=== PATIENT | female | born 1995 | race Hispanic/Latino ===

== ENCOUNTER 2021-02-22 14:50 | Day surgery (SDC) | payer BC ==
[2021-02-22 16:50] LABS: Hemoglobin 12.6 g/dL (12.0-15.5); Mean Corpuscular HGB CONC 32.5 g/dL (32.0-36.0); Mean Corpuscular Hemoglobin 29.9 pg (27.0-33.0); Mean Corpuscular Volume 92.2 fl (81.6-98.3); Mean Platelet Volume 12.9 fl (7.4-10.4); Platelet Count 159 10x3/uL (150-450); RBC Distribution Width 14.8 % (11.5-14.5); Red Blood Cell (RBC) Count 4.21 10x6/uL (3.90-5.03); White Blood Cell (WBC) Count 9.8 10x3/uL (3.5-10.5)
[2021-02-22 17:27] LABS: HIV (1/2) Antibody/Antigen Non-Reactive (NonReactive); HIV 1/2 INDEX 0.07 S/CO (<1.00); Hep B Surf Ag Non-Reactive S/CO (NonReactive); Syphilis Antibody Nonreactive (Nonreactive); Syphilis Antibody Index 0.06 S/CO (<1.00 Non-Reactive)
[2021-02-22 17:41] LABS: HBSAg Index 0.18 S/CO (0-0.99)
[2021-02-22 18:55] VITALS: BMI 41.0
== END 2021-02-22 20:02 | disposition home or self-care (01) ==
LOC: CSHLD/OP 14:50
PROVIDERS: ATTEND Obstetrics & Gynecology
DX: O09.33 Supervision of pregnancy with insufficient antenatal care, third trimester (principal); O34.219 Maternal care for unspecified type scar from previous cesarean delivery; O48.0 Post-term pregnancy; O32.1XX0 Maternal care for breech presentation, not applicable or unspecified; N85.8 Other specified noninflammatory disorders of uterus; Z3A.40 40 weeks gestation of pregnancy; Z79.899 Other long term (current) drug therapy
CPT/HCPCS: 76805; 85027; 86762; 86780; 86850; 86900; 86901; 87340; 87389; 99285

== ENCOUNTER 2021-03-07 22:58 | Inpatient (IN) | payer MEDICAID, OTHER ==
[~2021-03-07 22:58] MED LIST: Bupivacaine 0.25% HCL 30 ML VIAL ONE
[2021-03-07 23:28] VITALS: BMI 40.1
[2021-03-08] MEDS ORDERED: Famotidine/PF 20 mg/2ml Vial SLOW IVP PRN (00:01)
[2021-03-08] MEDS ORDERED: Ondansetron PF 4 MG/2 ML Vial IVP PRN ×3 (00:01→03:11)
[2021-03-08] MEDS ORDERED: hydrALAZINE 20 MG/ML VIAL SLOW IVP PRN ×2 (00:01→03:11)
[2021-03-08] MEDS ORDERED: Acetaminophen 500 MG TAB PO PRN (00:01)
[2021-03-08] MEDS ORDERED: Promethazine HCl 25 MG/ML VIAL IM PRN ×3 (00:01→03:11)
[2021-03-08] MEDS ORDERED: Bicitra 30 ML UDCUP PO PRN (00:01)
[2021-03-08] MEDS ORDERED: CEFAZOLIN 2 GM in Premix Bag 1 BAG IVPB SCH (00:15)
[2021-03-08] MEDS ORDERED: Azithromycin 500 MG in Sodium Chloride 0.9% 250 ML 250 ML IVPB SCH (00:15)
[2021-03-08 00:26] LABS: Fetal Membranes Rupture No Membranes Rupture (No Rupture)
[2021-03-08 00:53] LABS: Hemoglobin 13.2 g/dL (12.0-15.5); Mean Corpuscular HGB CONC 33.1 g/dL (32.0-36.0); Mean Corpuscular Hemoglobin 30.2 pg (27.0-33.0); Mean Corpuscular Volume 91.3 fl (81.6-98.3); Platelet Count 174 10x3/uL (150-450); RBC Distribution Width 14.8 % (11.5-14.5); Red Blood Cell (RBC) Count 4.37 10x6/uL (3.90-5.03); White Blood Cell (WBC) Count 12.1 10x3/uL (3.5-10.5)
[2021-03-08] MEDS ORDERED: Fentanyl 2 mcg/Bup 0.1% Cadd 100 ML ONE (01:07)
[2021-03-08 01:09] LABS: Amphetamine Not Detected (NotDetected); Barbiturates Screen Not Detected (NotDetected); Benzodiazepine Screen Not Detected (NotDetected); Cocaine Metabolite Screen Not Detected (NotDetected); Methadone Not Detected (NotDetected); Methamphetamine Not Detected (NotDetected); Opiate Screen Not Detected (NotDetected); Oxycodone Screen Not Detected (NotDetected); Phencyclidine (PCP) Not Detected (NotDetected); THC/Cannabinoid Screen Not Detected (NotDetected); Tricyclic Screen Not Detected (NotDetected)
[2021-03-08 01:15] LABS: Syphilis Antibody Nonreactive (Nonreactive); Syphilis Antibody Index 0.09 S/CO (<1.00 Non-Reactive)
[2021-03-08] MEDS ORDERED: Naloxone HCl 0.4 mg/ml Vial IVP PRN ×2 (01:43)
[2021-03-08] MEDS ORDERED: Hydrocerin (Eucerin) Cream 120 gm Jar TOP PRN (01:43)
[2021-03-08] MEDS ORDERED: diphenhydrAMINE 50 MG/ML VIAL IVP PRN (01:43)
[2021-03-08] MEDS ORDERED: Lactated Ringer's 500 ML IV PRN (01:43)
[2021-03-08] MEDS ORDERED: ePHEDrine Sulfate 50 MG/10 ML VIAL SLOW IVP PRN (01:43)
[2021-03-08] MEDS ORDERED: Acetaminophen 325 MG TAB PO PRN (01:43)
[2021-03-08] MEDS ORDERED: Fentanyl 2 mcg/Bupivacaine 0.1% Cassette 100 ML EPIDURAL SCH (01:45)
[2021-03-08] MEDS ORDERED: Communication Order-Pharmacy FS SCH (01:45)
[2021-03-08 01:46] LABS: Hep B Surf Ag Non-Reactive S/CO (NonReactive)
[2021-03-08 01:49] LABS: SARS-CoV-2 NAA Rapid Test Not Detected (NotDetected)
[2021-03-08 02:04] LABS: HBSAg Index 0.22 S/CO (0-0.99)
[2021-03-08] MEDS ORDERED: Lidocaine 1% (PF) 30 ML VIAL ONE (03:02)
[2021-03-08] MEDS ORDERED: Methylergonovine 0.2 MG/ML VIAL ONE (03:02)
[2021-03-08] MEDS ORDERED: Carboprost 250 MCG/ML AMP ONE (03:02)
[2021-03-08] MEDS ORDERED: Misoprostol 200 MCG TAB ONE (03:02)
[2021-03-08] MEDS ORDERED: NS w/ Oxytocin 30 units 500 ML ONE (03:03)
[2021-03-08] MEDS ORDERED: Carboprost 250 MCG/ML AMP IM PRN (03:09)
[2021-03-08] MEDS ORDERED: Misoprostol 200 MCG TAB PR PRN (03:09)
[2021-03-08] MEDS ORDERED: Diphenoxylate HCl/Atropine Tablet PO PRN ×2 (03:09)
[2021-03-08] MEDS ORDERED: HYDROcodone/Acetaminophen 5/325 mg Tablet PO PRN ×4 (03:09→03:11)
[2021-03-08] MEDS ORDERED: Methylergonovine 0.2 MG/ML VIAL IM PRN ×2 (03:09→03:11)
[2021-03-08] MEDS ORDERED: Lidocaine 1% (PF) 30 ML VIAL SC PRN (03:09)
[2021-03-08] MEDS ORDERED: Ibuprofen 800 MG TAB PO PRN (03:09)
[2021-03-08] MEDS ORDERED: Boostrix 0.5 ML (Tdap) VIAL IM ONE (03:11)
[2021-03-08] MEDS ORDERED: Varicella virus, LIVE 0.5 ML VIAL SC ONE (03:11)
[2021-03-08] MEDS ORDERED: Misoprostol 200 MCG TAB VAG PRN (03:11)
[2021-03-08] MEDS ORDERED: Preparation H Ointment 28 GM TUBE PR PRN (03:11)
[2021-03-08] MEDS ORDERED: Zolpidem Tartrate 5 MG TAB PO PRN (03:11)
[2021-03-08] MEDS ORDERED: Benzocaine-Menthol 82.5 ML CAN TOP PRN (03:11)
[2021-03-08] MEDS ORDERED: Bisacodyl 10 MG SUPP PR PRN (03:11)
[2021-03-08] MEDS ORDERED: Butorphanol Tartrate 1 MG/ML VIAL SLOW IVP PRN (03:11)
[2021-03-08] MEDS ORDERED: Lanolin Ointment 7 GM TUBE TOP PRN (03:11)
[2021-03-08] MEDS ORDERED: diphenhydrAMINE 25 MG CAP PO PRN (03:11)
[2021-03-08] MEDS ORDERED: Milk Of Magnesia 30 ML UDCUP PO PRN (03:11)
[2021-03-08] MEDS ORDERED: Measles/Mumps/Rubella 10 MCG/0.5 ML VIAL SC ONE (03:11)
[2021-03-08] MEDS ORDERED: Butorphanol Tartrate 1 MG/ML VIAL ONE (03:14)
[2021-03-08] MEDS ORDERED: NS w/ Oxytocin 30 units 500 ML IV SCH ×2 (03:15)
[2021-03-08] MEDS ORDERED: Morphine 4 MG/ML VIAL SLOW IVP PRN (03:25)
[2021-03-08] MEDS ORDERED: Morphine 4 MG/ML VIAL ONE (03:29)
[2021-03-08] MEDS: Ibuprofen 800 MG TAB PO SCH ×3 (06:29→21:25)
[2021-03-08] MEDS: Ferrous Sulfate 325 MG TAB PO SCH ×2 (10:55→17:06)
[2021-03-08] MEDS: Docusate Calcium (SURFAK) 240 MG CAP PO SCH ×2 (10:55→21:27)
[2021-03-09] MEDS: Ibuprofen 800 MG TAB PO SCH ×3 (05:11→21:23)
[2021-03-09] MEDS: Docusate Calcium (SURFAK) 240 MG CAP PO SCH ×2 (08:24→21:23)
[2021-03-09] MEDS: Ferrous Sulfate 325 MG TAB PO SCH ×2 (08:25→15:57)
[2021-03-10] MEDS: Ibuprofen 800 MG TAB PO SCH (04:57)
[2021-03-10] MEDS: Ferrous Sulfate 325 MG TAB PO SCH (07:46)
[2021-03-10 07:53] VITALS: BP 116/62; TEMP 98.8
[2021-03-10] MEDS: Docusate Calcium (SURFAK) 240 MG CAP PO SCH (08:16)
== END 2021-03-10 12:59 | disposition home or self-care (01) | DRG 807 ==
LOC: CSHLD/OP 22:58 → CSHLD 22:59 → CSHPP 03-08 10:10
PROVIDERS: ADMIT Obstetrics & Gynecology; ATTEND Obstetrics & Gynecology
PROC: 10E0XZZ Delivery of Products of Conception, External Approach (ICD-10-PCS; principal; 2021-03-08)
PROC: 10907ZC Drainage of Amniotic Fluid, Therapeutic from Products of Conception, Via Natural or Artificial Opening (ICD-10-PCS; 2021-03-08)
PROC: 0UQGXZZ Repair Vagina, External Approach (ICD-10-PCS; 2021-03-08)
DX: O34.211 Maternal care for low transverse scar from previous cesarean delivery (principal); Z37.0 Single live birth; Z20.822 Contact with and (suspected) exposure to COVID-19; Z3A.38 38 weeks gestation of pregnancy; O77.0 Labor and delivery complicated by meconium in amniotic fluid; O70.0 First degree perineal laceration during delivery
CPT/HCPCS: 36415; 51702; 80306; 84112; 85027; 86780; 86850; 86900; 86901; 87340; 99285; J0595; J2001; J2210; J2270; J2590; S0020; U0002

== ENCOUNTER 2023-10-25 23:51 | Day surgery (SDC) | payer SELFPAY ==
[2023-10-26 00:32] VITALS: BMI 31.8
== END 2023-10-26 04:30 | disposition home or self-care (01) ==
LOC: CSHLD/OP 23:51
PROVIDERS: ATTEND Obstetrics & Gynecology
DX: Z39.0 Encounter for care and examination of mother immediately after delivery (principal); O36.4XX0 Maternal care for intrauterine death, not applicable or unspecified; Z37.1 Single stillbirth; O34.211 Maternal care for low transverse scar from previous cesarean delivery; Z79.899 Other long term (current) drug therapy; Z87.59 Personal history of other complications of pregnancy, childbirth and the puerperium; Z3A.37 37 weeks gestation of pregnancy